=== PATIENT | male | born 1960 | race Caucasian/White ===

== ENCOUNTER 2019-02-10 07:36 | Emergency (ER) | payer OTHER, SELFPAY ==
[2019-02-10] VITALS (10 sets, daily range): BP systolic 114–149; BP diastolic 67–89; PULSE 70–133; RESP 14–30; TEMP 36.4–39.2; O2SAT 92–97; BMI 36.1
--- NOTE | 2019-02-10 07:47 | ED.RN ---
PT ARRIVED WITH A DEE CATH, A WOUND VAC TO HIS NECK AND A WOUND VAC TO HIS MID/LOWER BACK ON THE LT SIDE.
--- NOTE | 2019-02-10 07:57 | EKG12_ITS ---
Test Reason : Blood Pressure : / mmHG Vent. Rate : 127 BPM Atrial Rate : 127 BPM P-R Int : 138 ms QRS Dur : 090 ms QT Int : 306 ms P-R-T Axes : 048 -13 011 degrees QTc Int : 444 ms Sinus tachycardia Otherwise normal ECG Confirmed by CHIQUITA GRANADOS, RANI ([id number]), editorial clerk KAIT SMITH ([id number]) on 02/13/2019 1:29:35 PM Referred By: SHARAN Confirmed By:RANI PORRAS MD
--- NOTE | 2019-02-10 07:57 | RAD_ITS ---
STUDY: X-RAY CHEST REASON FOR EXAM: Male, 59 years old. COUGH/FEVER TECHNIQUE: Single AP portable view of the chest. COMPARISON: None. FINDINGS: The left-sided PICC line catheter is seen with the tip in the midportion of the superior vena cava. EKG electrodes are seen. The lungs are clear and expanded. Scattered calcified granulomas. There is no demonstrated pleural abnormality. Normal size heart. Normal mediastinum and guadalupe. Normal visualized pulmonary arteries. Normal visualized aortic arch and descending thoracic aorta. Normal visualized thoracic spine. Normal visualized ribs, clavicles, and shoulders. There is no demonstrated abnormality of the visualized soft tissue structures of the upper abdomen. RAD/Chest 1 View (Portable) IMPRESSION: No acute abnormality is seen. Electronically Signed: Luis Gabriel, at 10:11 EST , Service support ,
--- NOTE | 2019-02-10 08:01 | ED.VIS.GEN ---
History of Present Illness Chief Complaint: Fever Informant: Patient, Family, SNF Onset: Today Context: Gradual Onset - pt thinks yesterday Timing: Intermittent Quality: chills Location: all over Current Severity: Mild Maximum Severity: Severe Worsened by: nothing Relieved by: nothing Associated Symptoms: malaise Narrative: On 12/29/2018, patient had cervical decompression surgery for a spinal epidural abscess at [facility]. He is [place] and was determined to be a new onset insulin-dependent diabetic at that time. He was sent to a local assisted on 8 weeks of IV Rocephin via PICC line, according to the progress note that was sent with him, although the antibiotic is not on his list of medications, nor is any other antibiotic. Yesterday he started feeling feverish and chills. This was apparently verified today, but the fever that they measured is unknown since the assisted did not provide any report to our staff or document any such data on paperwork that they sent with them. Patient states he feels malaised and had chills, states he has had a minor nonproductive cough lately but denies any other symptoms. He has a wound VAC at 2 different sites on his neck and right low back, he states these areas are a little sore as they have been but otherwise have felt okay and not especially painful. Information is really limited here. His states that he has an appointment today to get the Chaudhry catheter out with a urologist at [facility]. - Past Medical History (1) Insulin dependent diabetes mellitus Status: Chronic (2) Abscess in epidural space of cervical spine Status: Resolved Past Medical History - Allergies and Home Meds Allergies/Adverse Reactions: Allergies No Known Allergies Allergy (Verified 02/10/19 07:40) Primary Care Physician: Brandon Goode DO [Primary Care Provider] - Doctors: Dr. Lee - Neurosurgery Surgical History: - - Cervical epidural abscess drainage Lives: [facility] Smoking Status: Never smoker Review of Systems General: Reports: Chills, Fever, Malaise. Denies: Sweats Eyes: Denies: Visual changes - bilaterally, Diplopia ENT: Denies: Rhinorrhea, Sore throat Cardiovascular: Denies: Chest pain, Palpitations Respiratory: Reports: Cough. Denies: Dyspnea, Sputum, Dyspnea on exertion Gastrointestinal: Denies: Abdominal pain, Nausea, Vomiting, Diarrhea, Melena, Hematochezia Genitourinary: Reports: - - chaudhry catheter in place x 1-2 mos. Denies: Dysuria, Hematuria, Frequency Musculoskeletal: Denies: Back pain, Swelling, Extremity Pain Skin: Reports: Wounds - surgical at neck, right mid-low back. Denies: Rash Neurological: Denies: Headache, Weakness, Numbness Physical Exam Vital Signs/Narrative: Vital Signs Temp Pulse Resp BP Pulse Ox 02/10/19 07:53 132 H 14 127/82 H 96 02/10/19 07:41 99.4 F H 133 H 26 H 145/78 H 92 Inital Vital Signs reviewed: Yes General: Well nourished, Well developed, Obese, Unkempt, No Acute Distress Head: Normocephalic, Atraumatic Eyes: Perrl, EOMI ENT: Moist mucous membranes, No rhinorrhea, TM's clear, - - POP clear, no erythema. airway intact. Neck: Supple, Nontender, No lymphadenopathy Cardiovascular: Regular rate, Regular rhythm, No murmurs, Normal S1, Normal S2, Tachycardia Respiratory: No distress, CTA bilaterally, Chest nontender Abdomen: Soft, Nontender, Nondistended, Normal bowel sounds Back: Nontender, Normal Inspection - Active wound VAC is attached to 2 separate surgical wounds, one at the mid neck, the other right mid-low back, both wounds are very clean-appearing without any erythema, purulent drainage, or tenderness anywhere. Extremities: Nontender, No edema. Negative for: Calf Tenderness Skin: Normal color, No rash, No Trauma Neurological: Alert, Oriented x3, Cranial nerves II-XII grossly intact, Normal Strength, Normal Sensation Psychological: Normal affect, Normal Mood Diagnostic/Tx/Re-eval Impressions Chest X-Ray 02/10/19 07:57 IMPRESSION: No acute abnormality is seen. Electronically Signed: Luis Gabriel, at 10:11 EST , Service support , 02/10/19 07:57 Chest 1 View (Portable) [RAD] Stat Laboratory Results 02/10/19 02/10/19 02/10/19 08:55 08:55 08:55 WBC 9.6 RBC 4.22 L Hgb 12.0 L Hct 37.0 L MCV 87.7 MCH 28.4 MCHC 32.4 RDW Std Deviation 42.7 RDW Coeff of Cesar 13.3 Plt Count 300 MPV 8.6 Immature Gran % (Auto) 0.500 Neut % (Auto) 90.0 H Lymph % (Auto) 7.7 L Lamoure % (Auto) 1.4 Eos % (Auto) 0.1 Baso % (Auto) 0.3 Absolute Neuts (auto) 8.7 H Absolute Lymphs (auto) 0.74 L Nucleated RBC % 0 PT 15.0 H INR 1.2 APTT 34.4 Sodium 137 Potassium 3.7 Chloride 104 Carbon Dioxide 26.0 Anion Gap 7 BUN 23 H Creatinine 0.76 Estim Creat Clear Calc 89.91 Est GFR (MDRD) Af Amer 136 Est GFR (MDRD) Non-Af 112 BUN/Creatinine Ratio 30.5 H Glucose 168 H Lactic Acid Calcium 8.6 Total Bilirubin 0.40 AST 19 ALT 21 Alkaline Phosphatase 60 Troponin I 0.034 Total Protein 7.3 Albumin 3.1 L Globulin 4.2 Albumin/Globulin Ratio 0.7 L Urine Color Urine Clarity Urine pH Ur Specific Liberty Urine Protein Urine Glucose (UA) Urine Ketones Urine Occult Blood Urine Nitrite Urine Bilirubin Urine Urobilinogen Ur Leukocyte Esterase Urine RBC Urine WBC Ur Squamous Epith Cells Urine Bacteria Urine Mucus Urine Yeast Acetone Level 02/10/19 02/10/19 02/10/19 08:55 08:55 10:07 WBC RBC Hgb Hct MCV MCH MCHC RDW Std Deviation RDW Coeff of Cesar Plt Count MPV Immature Gran % (Auto) Neut % (Auto) Lymph % (Auto) Lamoure % (Auto) Eos % (Auto) Baso % (Auto) Absolute Neuts (auto) Absolute Lymphs (auto) Nucleated RBC % PT INR APTT Sodium Potassium Chloride Carbon Dioxide Anion Gap BUN Creatinine Estim Creat Clear Calc Est GFR (MDRD) Af Amer Est GFR (MDRD) Non-Af BUN/Creatinine Ratio Glucose Lactic Acid 1.9 Calcium Total Bilirubin AST ALT Alkaline Phosphatase Troponin I Total Protein Albumin Globulin Albumin/Globulin Ratio Urine Color Yellow Urine Clarity Sl. Cloudy Urine pH 5.0 Ur Specific Liberty 1.020 Urine Protein 30 H Urine Glucose (UA) Normal Urine Ketones 15 H Urine Occult Blood 150 H Urine Nitrite Negative Urine Bilirubin Negative Urine Urobilinogen Normal Ur Leukocyte Esterase 25 H Urine RBC 10-25 SEEN Urine WBC 0-5 SEEN Ur Squamous Epith Cells 0 SEEN Urine Bacteria 0 SEEN Urine Mucus 0 SEEN Urine Yeast 2+ Acetone Level NEGATIVE - Rhythm Strip Rhythm Strip: Sinus Tach Rate: 125 Ectopy: None - EKG Initial EKG Interpretation: No Acute Injury Pattern, Sinus Tachycardia - Medical Decision Making Patient was treated with IV fluids, Tylenol. He feels better on reevaluation and is sitting at bedside chair, occasionally coughing, conversing with his family. He is well-appearing. His heart rate is down. His work-up really is unremarkable. He has a slight trend toward leftward shift without bandemia in an otherwise normal white blood count in the nines. His chest x-ray shows no infiltrate. His lungs are clear. His urine does not appear to be infected. His wounds and wound VAC areas look great. He has no neurologic symptoms. Blood and urine cultures were sent and I feel he is safe to go back to nursing home. I discussed with his neurosurgeon Dr. Lee at [facility]. He gave me more history on this case. Apparently the patient showed up in DKA and not able to move his arms or legs which led to an MRI of his cervical spine, showing an epidural abscess which was evacuated. He was put on antibiotics and sent home but apparently his living conditions are horrid, dirty, and according to social media content manager evaluation he went to the home, they may be hoarders. He had recurrence, and as found on MRI, involvement of his thoracic epidural area, recurrence of the cervical area, and a third area of abscess. He went back to the OR, which is where and he had the thoracic incision, the surgeon combined all 3 areas, wash them out, placed a wound VAC, put him on antibiotics with infectious diseases input, and he has been in nursing home since. Family is trying to get him out, but they do not have home health yet or the ability to care for this at this time. Dr. Lee saw the patient 2 days ago, and said that everything looked great. He had a repeat MRI the day prior to that of his cervical spine, there is no residual abscess, just some residual nonenhancing fluid, and he should stay the course and does not need anything else at this time from his standpoint. From a urology standpoint, it appears that he was referred there by the neurosurgeon when he was seen 2 days ago because he still had the catheter and wanted it out. We discussed with the urology clinic, with whom he had an appointment today, their plan was to check post voids after his catheter was taken out, which they had assumed was already done. We removed his Chaudhry. If he has issues with urinary retention, he is welcome to be sent back here. I am attempting to discuss with the assisted physician of record, Dr. Rhodes. ED Disposition - Plan for ED Patient: Disposition: Home or Assisted Living Diagnosis: SIRS (systemic inflammatory response syndrome) Instructions: FEBRILE ILLNESS, Uncertain Cause (Adult) Referrals: Weston Rhodes, WET CLEANER MACHINE-C [NON-STAFF] - 2 Days (and to review culture results) Additional Instructions: Blood and urine cultures were sent. The patient's work-up is unremarkable here today. We discussed with the neurosurgeon and urology personnel. His Chaudhry was removed. If he is unable to void, you may send him back to the ER for Chaudhry catheterization if needed.
[2019-02-10] MEDS: 0.9% Normal Saline 1,000 ML 999 ML IV (08:15)
[2019-02-10] MEDS: Acetaminophen 500 MG Tablet 1000 MG PO (08:58)
[2019-02-10 09:05] LABS: Absolute Lymphocyte Count 0.74 X10^3/uL (0.83-4.51); Absolute Neutrophil Count 8.7 X10^3/uL (2.0-7.7); Basophil# 0.03 X10^3/uL; Basophil% 0.3 % (0-1); Eosinophil# 0.01 X10^3/uL; Eosinophils% 0.1 % (0-5); Lymphocyte # 0.74 X10^3/ul (4.0); Lymphocyte % 7.7 % (19-41); Mean Corp Hgb Conc 32.4 g/dL (32-36); Mean Corpuscular Hgb 28.4 pg (27.0-32.0); Mean Corpuscular Volume 87.7 fL (80-94); Mean Platelet Vol. 8.6 fl (6.2-12.0); Monocyte# 0.13 X10^3/uL; Monocyte% 1.4 % (0-10); NRBC Flagged by Analyzer 0 % (0-5); Neutrophil # 8.65 X10^3/uL (2.7-7.7); Platelet Count 300 K/mm3 (150-450); RBC Distribution Width CV 13.3 % (11.6-14.6); RBC Distribution Width SD 42.7 fl (35.1-43.9); Red Blood Count 4.22 M/mm3 (4.6-6.2); White Blood Count 9.6 K/mm3 (4.4-11.0)
[2019-02-10 09:19] LABS: International Normalized Ratio 1.2
[2019-02-10 09:20] LABS: Partial Thromboplast Time 34.4 Seconds (24.1-36.2)
[2019-02-10 09:25] LABS: ALB/GLOB Ratio 0.7 RATIO (0.9-2.4); AST(SGOT) 19 U/L (15-37); Alanine Aminotransfer ALT/SGPT 21 U/L (16-61); Albumin, Serum 3.1 g/dL (3.2-5.0); Alkaline Phosphatase 60 U/L (45-117); Anion Gap 7 (5-15); BUN 23 mg/dL (7-18); BUN/Creat Ratio 30.5 RATIO (10-20); Calcium,Total 8.6 mg/dL (8.5-10.1); Chloride 104 mmol/L (98-107); Creatinine, Serum 0.76 mg/dL (0.70-1.30); EST Glomerular Filtration Rate 112 mL/min (>60); Est Glom Filt Rate - Afr Amer 136 mL/min (>60); Estimated Creatinine Clearance 89.91 ml/min; Globulin 4.2 g/dL (2.2-4.2); Glucose 168 mg/dL (74-106); Potassium 3.7 mmol/L (3.5-5.1); Protein, Total 7.3 g/dL (6.4-8.2); Sodium Level 137 mmol/L (136-145)
[2019-02-10 09:33] LABS: Lactic Acid 1.9 mmol/L (0.4-1.9)
--- NOTE | 2019-02-10 09:38 | ED.RN ---
MED AWARE OF TEMPERATURE, NO NEW ORDERS AT THIS TIME. WAITING FOR TYLENOL TO KICK IN.
[2019-02-10 10:13] LABS: Bacteria 0 SEEN /hpf (None Seen); Mucous, Urine 0 SEEN /hpf (<or=2+); Squamous Epithelial Cells - UA 0 SEEN /hpf (0-5)
[2019-02-10 10:42] LABS: Color, Urine Yellow (Yellow); Glucose, Dipstick Normal (Normal); Ketone-Dipstick 15 mg/dl (Negative); Leukocyte Esterase-Dipstick 25 /ul (Negative); Nitrite-Dipstick Negative (Negative); Occult Blood-Urine 150 /ul (Negative); Protein-Dipstick 30 mg/dl (Negative); Urine Bilirubin Dipstick Negative (Negative); Urine Clarity Sl. Cloudy (Clear); Urine Urobilinogen Normal (Normal)
[2019-02-10 10:52] LABS: Red Blood Cells-Urine 10-25 SEEN /hpf (0-5); White Blood Cells 0-5 SEEN /hpf (0-5)
[2019-02-10 10:53] LABS: Yeast-Urine 2+ /hpf (None Seen)
--- NOTE | 2019-02-11 09:44 | ED.RN ---
called pt to come back in or go to [facility]. pt was upset yesterday that the squad would not take him to [facility] where his surgeon is. pt number went to the neighbor so he will let them know to call us.
--- NOTE | 2019-02-11 17:41 | ED.RN ---
Areli latisha son called and said that pt is at [facility]. [facility] was called and nurse was advised that the blood culture was negative and that the pt needed to be hospitalized for antibiotics. pt was upset about being at this facility yesterday so nurse was advised to send him here or wherever the pt wants to go
--- NOTE | 2019-02-12 23:25 | ED.RN ---
THIS NURSE ATTEMPTED TO GIVE BLOOD CULTURE RESULTS TO [facility]. FOUND OUT THE PT IS ADMITTED AT [facility]. THIS NURSE CONTACTED [facility] AND OBTAINED FAX NUMBER FOR THE RESULTS. BLOOD CULTURE RESULTS FAXED TO [facility] BY FURNACE [employer]PER
== END 2019-02-10 12:19 | disposition home or self-care (01) ==
PROVIDERS: Emergency Provider Emergency Medicine; Family Provider Family Medicine; PCP Family Medicine
DX: R65.10 Systemic inflammatory response syndrome (SIRS) of non-infectious origin without acute organ dysfunction (principal); E11.9 Type 2 diabetes mellitus without complications; R05 Cough; Z79.4 Long term (current) use of insulin; Z79.899 Other long term (current) drug therapy
CPT/HCPCS: 71045; 80053; 81001; 82009; 83605; 84484; 85025; 85610; 85730; 87040; 87077; 87086; 87088; 87186; 93005; 99285; A4216